=== PATIENT | male | born 1965 | race Caucasian/White ===

== ENCOUNTER → 2018-09-28 | Outpatient (CLI) | payer SELFPAY ==
--- NOTE | 2018-09-28 11:22 | Diagnostic Imaging Report ---
PROCEDURE: MRI lumbar spine. TECHNIQUE: Multiplanar, multisequence MRI of the lumbar spine was performed without contrast. INDICATION: Low back pain. COMPARISON: No prior studies are available for comparison. FINDINGS: Curvature and alignment of the lumbar spine is normal. The vertebral body heights are maintained. The marrow signal intensity is unremarkable. No geographic marrow lesion or acute compression fracture is seen. There is fairly normal height and hydration to the lumbar discs with the exception of the L5-S1 disc which shows degenerative changes with disc space narrowing and desiccation. The conus is unremarkable at the L1 level. T12-L1: The central canal and neural foramen are widely patent. L1-2: Unremarkable. L2-3: There is minimal ligamentous thickening. No central canal or neural foraminal narrowing is detected. L3-4: There is ligamentous thickening and facet changes. There is slight flattening of the ventral thecal sac. However, central canal remains patent. There is mild to moderate bilateral neural foraminal narrowing due to broad-based annular bulging. L4-5: There is ligamentous thickening and broad-based disc/osteophyte complex. Central canal remains patent but there is some narrowing of the lateral recesses bilaterally. No significant neural foraminal stenosis is seen. L5-S1: Broad-based disc/osteophyte complex is present. There is also a wide-based midline/left paramidline disc bulge resulting in left lateral recess stenosis and likely impingement on the left S1 nerve root origin. There is moderate neural foraminal narrowing bilaterally. There is some mild central canal narrowing. Paraspinous tissues demonstrates a probable cyst in the upper pole of the right kidney measuring 18 mm. IMPRESSION: 1. Multilevel lumbar degenerative disc and facet disease, described level by level above. There is a prominent wide based disc/osteophyte complex at the L5-S1 level resulting in left lateral recess stenosis. There is also mild central canal narrowing. 2. No evidence of acute compression fracture. Dictated by: Dictated on workstation # [id number]
== END ==
LOC: RAD 09:34
PROVIDERS: ATTEND Nurse Practitioner Family
DX: M48.061 Spinal stenosis, lumbar region without neurogenic claudication (principal); M47.816 Spondylosis without myelopathy or radiculopathy, lumbar region; M53.86 Other specified dorsopathies, lumbar region
CPT/HCPCS: 72148